=== PATIENT | female | born 1995 | race Caucasian/White ===

== ENCOUNTER 2017-08-01 14:43 | Emergency (ER) | payer OTHER ==
[~2017-08-01] VITALS: Ht 162.6 cm; Wt 74.8 kg
[2017-08-01 15:31] VITALS: Ht 162.6 cm; Wt 74.8 kg
[2017-08-01 17:37] LABS: BASOPHIL # 0.1 10^3/ul (0.0-0.1); BASOPHILS % 0.6 % (0.0-2.0); EOSINOPHILS # 0.2 10^3/ul (0.0-0.5); EOSINOPHILS % 1.8 % (0.0-7.0); HEMATOCRIT 42.6 % (37.0-47.0); HEMOGLOBIN 14.1 g/dl (12.0-16.0); LYMPHOCYTES # 3.1 10^3/ul (0.8-2.9); LYMPHOCYTES % 33.4 % (15.0-51.0); MEAN CORPUSCULAR HEMOGLOBIN 31.5 pg (29.0-33.0); MEAN CORPUSCULAR HGB CONC 33.1 g/dl (32.0-37.0); MEAN CORPUSCULAR VOLUME 95.3 fl (82.0-101.0); MEAN PLATELET VOLUME 9.4 fl (7.4-10.4); MONOCYTE # 0.6 10^3/ul (0.3-0.9); MONOCYTES % 6.2 % (0.0-11.0); NEUTROPHIL # 5.4 10^3/ul (1.6-7.5); NEUTROPHILS % 57.8 % (39.0-77.0); PLATELET COUNT 262 10^3/UL (140-415); RED BLOOD COUNT 4.47 10^6/ul (4.20-5.40); RED CELL DISTRIBUTION WIDTH 12.5 % (11.5-14.5); WHITE BLOOD COUNT 9.4 10^3/ul (4.8-10.8)
[2017-08-01 18:03] LABS: ALANINE AMINOTRANSFERASE 31 IU/L (13-69); ALBUMIN 4.1 g/dl (3.3-4.9); ALBUMIN/GLOBULIN RATIO 1.17; ALKALINE PHOSPHATASE 67 IU/L (42-121); ANION GAP 14 (8-16); ASPARTATE AMINO TRANSFERASE 21 IU/L (15-46); BILIRUBIN,INDIRECT 0.4 mg/dl (0-1.1); BILIRUBIN,TOTAL 0.4 mg/dl (0.2-1.3); BLOOD UREA NITROGEN 11 mg/dl (7-20); CALCIUM 9.1 mg/dl (8.4-10.2); CARBON DIOXIDE 24 mmol/L (21-31); CHLORIDE 108 mmol/L (97-110); CREATININE 0.96 mg/dl (0.44-1.00); GLUCOSE 87 mg/dl (70-220); POTASSIUM 3.7 mmol/L (3.5-5.1); SODIUM 142 mmol/L (135-144); TOTAL PROTEIN 7.6 g/dl (6.1-8.1)
[2017-08-01 18:10] LABS: ACETAMINOPHEN < 10.0 ug/ml (10.0-30.0); SALICYLATE < 1.0 mg/dl (5.0-30.0)
[2017-08-01 18:22] LABS: BARBITURATES Negative (NEGATIVE); BENZODIAZEPINES Negative (NEGATIVE); CANNABINOIDS Positive (NEGATIVE); COCAINE Negative (NEGATIVE); OPIATES Negative (NEGATIVE)
[2017-08-01 18:43] LABS: ETHANOL < 10.0 mg/dl
--- NOTE | 2017-08-01 19:47 | PSY ---
Date/Time of Note Date/Time of Note DATE: 08/01/17 TIME: 19:38 Psychiatric Subjective Eval Consent Pt consented to telemedicine: Yes Subjective Evaluation Patient location: emergency Chief Complaint: Sent by PCP for SI, no plan Reason for consult: Psychiatric evaluation History of present illness Patient is a 22 year old female with a history of depression since age 12. She describes relapsing/recurrent depression with anhedonia, middle sleep awakening , memory/concentration issues, low energy and thoughts of suicide. She describes a very time limited (one day) inverse of her symptoms in which she feels happy, energized and optimistic. Pt denies current plan or intent to take her life. She admits to overdosing in December and was hospitalized at that time. However, she denies current plan/means to harm herself. She also reports that she feels safe out of the hospital. She is primarily concerned with getting a second opinion regarding her treatment. She denies hallucinations and delusions. She does use cannabis. Her current doctor is prescribing celexa, wellbutrin and topamax. Wellbutrin is being tapered and the PMD started topamax two days ago. The alternative plan was to try lamictal if the topamax does not work. Recent job loss Past psychiatric history See above. Paxil made her energized as did Abililfy. Lexapro made her too sleepy. Hospitalization: yes Family History Depression in Aunts. Grandmother may have had a bipolar disorder. Medical history NA Substance Abuse Substance use: No known substance abuse Social History Marital status: single Level of education: NA DPA/Conservatorship: No Occupation/Long-Term: Unemployed Psychiatric Objective Eval Physical Examination: Physical Examination: Applicable Sleep: Insomnia Appetite: Adequate Energy: Decreased Interest: Decreased Mental Status Examination: Appearance: Groomed Eye Contact: Good Psychomotor Activity: Normal Speech: Clear AFFECT: Blunt Mood: Depressed Though Process: Linear Thought Content: Normal Suicidal: Yes Homicidal: No On 72 hour hold: No Orientation: x4 Cognition: Alert Insight: Intact Judgement: Intact Attention Span: Intact Laboratory Results Laboratory Tests Test 08/01/17 17:28 White Blood Count 9.410^3/ul Red Blood Count 4.4710^6/ul Hemoglobin 14.1g/dl Hematocrit 42.6% Mean Corpuscular Volume 95.3fl Mean Corpuscular Hemoglobin 31.5pg Mean Corpuscular Hemoglobin Concent 33.1g/dl Red Cell Distribution Width 12.5% Platelet Count 67322^3/UL Mean Platelet Volume 9.4fl Neutrophils % 57.8% Lymphocytes % 33.4% Monocytes % 6.2% Eosinophils % 1.8% Basophils % 0.6% Nucleated Red Blood Cells % 0.0/100WBC Neutrophils # 5.410^3/ul Lymphocytes # 3.110^3/ul Monocytes # 0.610^3/ul Eosinophils # 0.210^3/ul Basophils # 0.110^3/ul Nucleated Red Blood Cells # 0.010^3/ul Sodium Level 142mmol/L Potassium Level 3.7mmol/L Chloride Level 108mmol/L Carbon Dioxide Level 24mmol/L Anion Gap 14 Blood Urea Nitrogen 11mg/dl Creatinine 0.96mg/dl Glucose Level 87mg/dl Calcium Level 9.1mg/dl Total Bilirubin 0.4mg/dl Direct Bilirubin 0.00mg/dl Indirect Bilirubin 0.4mg/dl Aspartate Amino Transf (AST/SGOT) 21IU/L Alanine Aminotransferase (ALT/SGPT) 31IU/L Alkaline Phosphatase 67IU/L Total Protein 7.6g/dl Albumin 4.1g/dl Globulin 3.50g/dl Albumin/Globulin Ratio 1.17 Salicylates Level < 1.0mg/dl Urine Opiates Screen Negative Acetaminophen Level < 10.0ug/ml Urine Barbiturates Negative Urine Amphetamines Screen Negative Urine Benzodiazepines Screen Negative Urine Cocaine Screen Negative Urine Cannabinoids Positive Ethyl Alcohol Level < 10.0mg/dl Assessment and Plan Assessment/Diagnosis Sanderson I: Unspecified Affective Disorder (MDD versus a Bipolar II Disorder) Recommendation/Plan Medication Management The PMD's plan is acceptable. While I prefer Lamictal to Topamax as an initial mood stabilizer in the depressed patient, the plan is to try topamax first and then, lamictal, if no response. I discussed this with the patient. I think working through the PMD's plan is reasonable. Psychotherapy Brief support and psychoeducation Pt. Caregiver/Family Education NA Follow-up/Disposition Recommend discharge to home once medically cleared. Patient could benefit from director of social media marketing consult as she recently lost her employment and is needing aid/ assistance. Pt reports feeling safe enough to return home and she does not meet the criteria for an involuntary hold as this time. Please return to ER if situation changes. [id number] Recommendation: HUI UNDERWOOD Aug 01, 2017 19:47
--- NOTE | 2017-08-01 20:15 | ERD ---
ER Documentation Chief Complaint Chief Complaint Sent by PCP for SI, no plan HPI 22-year-old female presents emergency room because she wants help she feels very depressed. She has had thoughts of harming herself at times but has no specific plan currently. She is accompanied by family. She has no physical symptoms currently. She does have a psychiatrist who is currently undergoing medication adjustment she thinks she might feel extra depressed because of that. She would like consult with tele-psychiatry. ROS All systems reviewed and are negative except as per history of present illness. PMhx/Soc Medical and Surgical Hx: pt denies Surgical Hx Hx Psychiatric Problems: Yes (DEPRESSION) Hx Alcohol Use: No Hx Substance Use: No Hx Tobacco Use: No Smoking Status: Never smoker Physical Exam Vitals Vital Signs Date Time Temp Pulse Resp B/P Pulse Ox O2 Delivery O2 Flow Rate FiO2 08/01/17 18:55 98.5 57 16 111/68 99 Room Air 08/01/17 15:31 99.4 68 20 114/68 99 Physical Exam Const: [] No distress Head: Atraumatic Eyes: Normal Conjunctiva ENT: Normal External Ears, Nose and Mouth. Resp: Clear to auscultation bilaterally Cardio: Regular rate and rhythm, no murmurs Abd: Soft, non tender, non distended. Normal bowel sounds Skin: No petechiae or rashes Ext: No cyanosis, or edema Neur: Awake and alert and oriented 3, no focal deficits Psych: Slightly flat affect but calm and conversive. Result Diagram: 08/01/17 1728 08/01/17 1728 Results 24 hrs Laboratory Tests Test 08/01/17 17:28 White Blood Count 9.410^3/ul Red Blood Count 4.4710^6/ul Hemoglobin 14.1g/dl Hematocrit 42.6% Mean Corpuscular Volume 95.3fl Mean Corpuscular Hemoglobin 31.5pg Mean Corpuscular Hemoglobin Concent 33.1g/dl Red Cell Distribution Width 12.5% Platelet Count 84299^3/UL Mean Platelet Volume 9.4fl Neutrophils % 57.8% Lymphocytes % 33.4% Monocytes % 6.2% Eosinophils % 1.8% Basophils % 0.6% Nucleated Red Blood Cells % 0.0/100WBC Neutrophils # 5.410^3/ul Lymphocytes # 3.110^3/ul Monocytes # 0.610^3/ul Eosinophils # 0.210^3/ul Basophils # 0.110^3/ul Nucleated Red Blood Cells # 0.010^3/ul Sodium Level 142mmol/L Potassium Level 3.7mmol/L Chloride Level 108mmol/L Carbon Dioxide Level 24mmol/L Anion Gap 14 Blood Urea Nitrogen 11mg/dl Creatinine 0.96mg/dl Glucose Level 87mg/dl Calcium Level 9.1mg/dl Total Bilirubin 0.4mg/dl Direct Bilirubin 0.00mg/dl Indirect Bilirubin 0.4mg/dl Aspartate Amino Transf (AST/SGOT) 21IU/L Alanine Aminotransferase (ALT/SGPT) 31IU/L Alkaline Phosphatase 67IU/L Total Protein 7.6g/dl Albumin 4.1g/dl Globulin 3.50g/dl Albumin/Globulin Ratio 1.17 Salicylates Level < 1.0mg/dl Urine Opiates Screen Negative Acetaminophen Level < 10.0ug/ml Urine Barbiturates Negative Urine Amphetamines Screen Negative Urine Benzodiazepines Screen Negative Urine Cocaine Screen Negative Urine Cannabinoids Positive Ethyl Alcohol Level < 10.0mg/dl Procedures/MDM Young adult with depression occasional thoughts of suicidal ideation. Complete physical exam laboratories performed performed I see no current medical condition and preclude her from psychiatric admission if necessary. She was seen by Dr. ogden, tele-psychiatrist who did not think the patient had an acute need for inpatient admission and the patient agreed with this. She is going to continue with her psychiatrist plan and I am instructing her to see a psychiatrist tomorrow and call first thing in the morning. Told her return to the emergency room if she is having any concerning thoughts of harming herself or others. Discharging in stable condition. I have printed the tele- psychiatry consult her to take to her psychiatrist tomorrow. Departure Diagnosis: Primary Impression: Depression Condition: Stable Patient Instructions: Depression Additional Instructions: Call your primary care doctor TOMORROW for an appointment during the next 1-2 days.See the doctor sooner or return here if your condition worsens before your appointment time. BRUNO MAYER DO Aug 01, 2017 20:15
[2017-08-01 20:34] VITALS: BP 109/64; PULSE 64; RESP 14; TEMP 98.4
== END 2017-08-01 20:42 | disposition home or self-care (01) ==
LOC: E/R 14:43
DX: F32.9 Major depressive disorder, single episode, unspecified (principal); R45.851 Suicidal ideations; R40.2142 Coma scale, eyes open, spontaneous, at arrival to emergency department; R40.2252 Coma scale, best verbal response, oriented, at arrival to emergency department; R40.2362 Coma scale, best motor response, obeys commands, at arrival to emergency department
CPT/HCPCS: 36415; 80053; 80306; 80307; 85025; Z7502; 99283